=== PATIENT | male | born 1980 | race Caucasian/White ===

== ENCOUNTER 2024-07-30 09:23 | Emergency (ER) | payer OTHER ==
--- NOTE | 2024-07-30 09:30 | ERPHSYRPT ---
- History of Present Illness Time Seen by Provider: 07/30/24 09:30 Source: patient Exam Limitations: no limitations Physician History: This is a 43-year-old white male patient who presents to the emergency department with complaints of significant sore throat that began yesterday. Patient's spouse as well as his child has had similar symptoms. Patient denies cough. Patient denies shortness of breath. Patient denies fever. There is been no nausea vomiting or diarrhea symptoms. Timing/Duration: yesterday Cough Quality/Degree: no cough Possible Cause: no prior episodes Modifying Factors: Improves With: nothing Associated Symptoms: sore throat, No fever, No chest pain/soreness, No cough, No muscle aches, No shortness of breath Allergies/Adverse Reactions: No Known Drug Allergies Allergy (Verified 07/30/24 09:43) Home Medications: Escitalopram Oxalate 20 mg PO DAILY 07/30/24 [History] Quetiapine Fumarate [Seroquel] 50 mg PO DAILY 07/30/24 [History] clonazePAM [Clonazepam] 1 mg PO DAILY 07/30/24 [History] Travel Risk - International Travel Have you traveled outside of the country in past 3 weeks: No - Emerging Infectious Disease Are you exhibiting symptoms associated with any current EIDs: Yes Symptoms: Other (Please Comment) (Sore throat) - Review of Systems Constitutional: No Symptoms Eyes: No Symptoms Ears, Nose, & Throat: Throat Pain Respiratory: No Symptoms Cardiac: No Symptoms Abdominal/Gastrointestinal: No Symptoms Genitourinary Symptoms: No Symptoms Musculoskeletal: No Symptoms Skin: No Symptoms Neurological: No Symptoms Psychological: No Symptoms Endocrine: No Symptoms Hematologic/Lymphatic: No Symptoms Immunological/Allergic: No Symptoms All Other Systems: Reviewed and Negative - Past Medical History Pertinent Past Medical History: Yes - Nursing Vital Signs Nursing Vital Signs: Initial Vital Signs Temperature 98.2 F 07/30/24 09:38 Pulse Rate 88 07/30/24 09:38 Respiratory Rate 18 07/30/24 09:38 Blood Pressure 146/72 07/30/24 09:38 O2 Sat by Pulse Oximetry 98 07/30/24 09:38 Pain Scale Pain Intensity 6 - Physical Exam General Appearance: no apparent distress, alert, anxiety Eye Exam: PERRL/EOMI, eyes nml inspection Ears, Nose, Throat Exam: moist mucous membranes, pharyngeal erythema Neck Exam: normal inspection, non-tender, supple, full range of motion Respiratory Exam: normal breath sounds, lungs clear, airway intact, No chest tenderness, No respiratory distress Cardiovascular Exam: regular rate/rhythm, normal heart sounds, normal peripheral pulses Gastrointestinal/Abdomen Exam: No tenderness Rectal Exam: not done Back Exam: normal inspection, normal range of motion, No CVA tenderness, No vertebral tenderness Extremity Exam: normal inspection, normal range of motion, pelvis stable Neurologic Exam: alert, oriented x 3, cooperative, 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, nml cerebellar function, nml station & gait, sensation nml Skin Exam: normal color, warm, dry Lymphatic Exam: No adenopathy SpO2 Interpretation: normal O2 Delivery: Room Air - Course Nursing assessment & vital signs reviewed: Yes Lab/Rad Data: Laboratory Results 07/30/24 07/30/24 Range/Units 09:52 09:52 Influenza Type A Ag NEGATIVE (NEGATIVE) Influenza Type B Ag NEGATIVE (NEGATIVE) RSV (PCR) NEGATIVE (NEGATIVE) SARS-CoV-2 (PCR) NEGATIVE (NEGATIVE) Group A Strep Antibody NOT DETECTED (NEGATIVE) - Progress Progress: unchanged Air Movement: good Progress Note: 07/30/24 10:00 Medical decision making and the assignment of low complexity is based on review the patient's past medical history, review of the patient's medication list, reviewed patient drug allergy list, history present illness and physical findings on examination. The workup in this patient includes viral swabs, group A strep test. Differential diagnosis includes but is not limited to viral pharyngitis, b acterial pharyngitis 07/30/24 10:39 I interpreted the patient's laboratory data results. Based on the laboratory data results, there are no acute, emergent medical issues. Blood Culture(s) Obtained: No Antibiotics given: No Counseled pt/family regarding: lab results, diagnosis, need for follow-up Medical Desision Making - Diagnostic Testing Diagnostic test were ordered, analyzed, and reviewed by me: Yes - Risk of complications The pt has a mod risk of morbidity or mortality based on: Need for prescription drug management - Departure Departure Disposition: Home Clinical Impression: Pharyngitis Condition: Stable Critical Care Time: No Additional Instructions: Drink plenty of cool fluids. May add Tylenol for pain control. May also use hard candy or throat lozenges for pain control. Follow-up with primary care provider for further evaluation management in the next 3 to 5 days. Prescriptions: Prednisone 10 mg [Deltasone 10 mg] 10 mg PO TID #6 tablet
[2024-07-30 09:43] VITALS: BP 146/72; TEMP 98.2
[2024-07-30 10:38] LABS: INFLUENZA A NEGATIVE (NEGATIVE); INFLUENZA B NEGATIVE (NEGATIVE); RESPIRATORY SYNCTIAL VIRUS NEGATIVE (NEGATIVE); SARS-CoV-2 Xpert Express NEGATIVE (NEGATIVE)
[2024-07-30 11:11] VITALS: PULSE 70; RESP 14; O2SAT 97
== END 2024-07-30 11:11 | disposition home or self-care (01) ==
LOC: ED 09:23
DX: J02.9 Acute pharyngitis, unspecified (principal); Z79.899 Other long term (current) drug therapy
CPT/HCPCS: 0241U; 87651; 99282